=== PATIENT | male | born 1960 | race Caucasian/White ===

== ENCOUNTER 2017-01-06 06:29 | Emergency (ER) | payer OTHER ==
[~2017-01-06] VITALS: Ht 170.2 cm; Wt 127.0 kg
[~2017-01-06 06:29] MED LIST: KEFLEX500 MG PO
[2017-01-06] MEDS ORDERED: TRIMETHOPRIM /P10 M1 OPHTHALMIC (07:10)
[2017-01-06 07:58] VITALS: BP 152/82
== END 2017-01-06 08:02 | disposition home or self-care (01) ==
LOC: ER 06:29
DX: S05.02XA Injury of conjunctiva and corneal abrasion without foreign body, left eye, initial encounter (principal); I10 Essential (primary) hypertension; X58.XXXA Exposure to other specified factors, initial encounter; Y93.89 Activity, other specified; Y92.89 Other specified places as the place of occurrence of the external cause; Y99.8 Other external cause status